=== PATIENT | female | born 1955 | race Caucasian/White ===

== ENCOUNTER 2018-06-13 12:18 | Day surgery (SDC) | payer OTHER ==
[2018-06-13] MEDS ORDERED: PROPOFOL 20 ML (14:09)
[2018-06-13] MEDS ORDERED: ONDANSETRON 4 MG INJ IV (14:30)
== END 2018-06-13 15:52 | disposition home or self-care (01) ==
LOC: GIL 12:18
DX: K92.1 Melena (principal); K20.8 Other esophagitis; K62.1 Rectal polyp; K57.30 Diverticulosis of large intestine without perforation or abscess without bleeding; K64.8 Other hemorrhoids; K22.2 Esophageal obstruction; I10 Essential (primary) hypertension; G40.909 Epilepsy, unspecified, not intractable, without status epilepticus
CPT/HCPCS: 43239; 88305; 88312; 88313

== ENCOUNTER 2018-07-29 14:11 | Emergency (ER) | payer OTHER | END 2018-07-29 18:10 | disposition home or self-care (01) | LOC: FTE 14:11 | DX: M25.561 Pain in right knee (principal); I10 Essential (primary) hypertension; Z79.82 Long term (current) use of aspirin | CPT/HCPCS: 29505; 73562; 99283-25 ==